=== PATIENT | male | born 1985 | race Caucasian/White ===

== ENCOUNTER 2016-11-23 18:24 | Emergency (ER) | payer OTHER ==
[~2016-11-23] VITALS: Ht 172.7 cm; Wt 101.6 kg
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
[2016-11-23 20:23] VITALS: BP 136/78
== END 2016-11-23 20:23 | disposition home or self-care (01) ==
LOC: ER 18:24
DX: M54.5 Low back pain (principal); G89.29 Other chronic pain; M19.90 Unspecified osteoarthritis, unspecified site; F17.210 Nicotine dependence, cigarettes, uncomplicated; Y08.89XA Assault by other specified means, initial encounter; Y93.89 Activity, other specified; Y99.8 Other external cause status; Y92.89 Other specified places as the place of occurrence of the external cause
CPT/HCPCS: 72131; 72192; 99284-25